=== PATIENT | male | born 1955 | race Caucasian/White ===

== ENCOUNTER → 2016-06-02 | Outpatient (CLI) | payer OTHER ==
--- NOTE | 2016-06-02 16:00 | US ---
Ultrasound Venous Doppler Study of the Left Lower Extremity History: Left calf pain and swelling in a 60-year-old male; evaluate for deep vein thrombosis. Technique: High frequency transducer was used for imaging and Doppler study of the veins of the left lower extremity. Pulsed Doppler and color Doppler were utilized, along with various maneuvers to ass ess flow in the veins. Findings: The deep veins of the left lower extremity are normally compressible between the groin and the upper calf and have normal Doppler waveforms within them. No venous thrombosis is identified. Impression: No evidence of deep vein thrombosis in the left lower extremity. A preliminary report was called to the patient's healthcare provider, Dr. Khan.
== END ==
LOC: FIMAGING 15:13
PROVIDERS: ATTEND Family Medicine
DX: R22.42 Localized swelling, mass and lump, left lower limb (principal)

== ENCOUNTER 2017-02-04 17:56 | Emergency (ER) | payer OTHER ==
[2017-02-04 18:13] VITALS: PULSE 63; TEMP 97.7
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
[2017-02-04] MEDS ORDERED: LIDOCAINE 5% 1 EA PATCH TD ONE (18:38)
[2017-02-04] MEDS ORDERED: DIAZEPAM 10 MG/2 ML SYR IVP ONE (18:38)
[2017-02-04] MEDS ORDERED: KETOROLAC 15 MG/1 ML SDV IVP ONE (18:38)
[2017-02-04] MEDS ORDERED: DIAZEPAM 5 MG TAB PO ONE (20:48)
[2017-02-04] MEDS ORDERED: DIAZEPAM 5 MG PREPACK#4 BTL TAKEHOME ONE (20:53)
[2017-02-04] MEDS ORDERED: PATCH REMOVAL 1 EA PATCH TD SCH (21:00)
[2017-02-04 21:03] VITALS: BP 151/89; RESP 15; O2SAT 96
== END 2017-02-04 21:03 | disposition home or self-care (01) ==
DX: S39.012A Strain of muscle, fascia and tendon of lower back, initial encounter (principal); Z95.0 Presence of cardiac pacemaker; V18.0XXA Pedal cycle driver injured in noncollision transport accident in nontraffic accident, initial encounter; Y92.410 Unspecified street and highway as the place of occurrence of the external cause; Y99.8 Other external cause status; Y93.55 Activity, bike riding
CPT/HCPCS: 96374; J1885

== ENCOUNTER → 2018-05-05 | Outpatient (CLI) | payer OTHER | LOC: GIMAGING 16:17 | PROVIDERS: ATTEND Family Medicine | DX: M16.11 Unilateral primary osteoarthritis, right hip (principal); M16.12 Unilateral primary osteoarthritis, left hip | CPT/HCPCS: 73521-PO ==

== ENCOUNTER 2018-07-22 05:51 | Inpatient (IN) | payer OTHER ==
[2018-07-22] MEDS ORDERED: ROPIVACAINE 0.2% 80 MG, EPINEPHrine 0.2 MG, KETOROLAC TROMETHAMINE 30 MG in SYRINGE 0 ML IU ONE (06:00)
[2018-07-22] MEDS ORDERED: TRANEXAMIC ACID 3,000 MG in NS (SYRINGE) 50 ML IRR ONE (06:00)
--- NOTE | 2018-07-22 06:13 | PDHPUP ---
History & Physical Update H&P update statement: This history and physical update is based on an assessment of the patient which was completed after admission or registration (within 24 hours), but prior to the surgery/procedure. H&P update: H&P reviewed & patient examined
[2018-07-22] MEDS ORDERED: FAMOTIDINE 20 MG TAB PO ONE (06:44)
[2018-07-22] MEDS ORDERED: ceFAZolin 2 GM/DEXTROSE 100 ML IV ONE (06:44)
[2018-07-22] MEDS ORDERED: ACETAMINOPHEN 325 MG TAB PO ONE (06:44)
[2018-07-22] MEDS ORDERED: DEXAMETHASONE 4 MG/ML VIAL IVP ONE (06:44)
[2018-07-22] MEDS ORDERED: TRANEXAMIC ACID 3,000 MG/50 ML BAG IRR ONE (06:45)
[2018-07-22] MEDS ORDERED: LR 1,000 ML IV ONE (06:45)
[2018-07-22] MEDS ORDERED: MIDAZOLAM 2 MG/2 ML VIAL IVP ONE (07:39)
--- NOTE | 2018-07-22 07:39 | PDANEPAE ---
ANE History of Present Illness R hip DJD, here for RTHA ANE Past Medical History - Cardiovascular History Hx Hypertension: Yes Hx Arrhythmias: Yes Hx Chest Pain: No Hx Coronary Artery / Peripheral Vascular Disease: No Hx CHF / Valvular Disease: Yes Hx Palpitations: No Cardiovascular History Comment: SSS,PAF. MITRAL VALVE REGURGITATION. PPM DEPENDANT - Pulmonary History Hx COPD: No Hx Asthma/Reactive Airway Disease: No Hx Recent Upper Respiratory Infection: No Hx Oxygen in Use at Home: No Hx Sleep Apnea: Yes Sleep Apnea Screening Result - Last Documented: Positive Pulmonary History Comment: VU uses CPAP - Neurologic History Hx Cerebrovascular Accident: No Hx Seizures: No Hx Dementia: No - Endocrine History Hx Diabetes: No - Renal History Hx Renal Disorders: No - Liver History Hx Hepatic Disorders: No - Neurological & Psychiatric Hx Hx Neurological and Psychiatric Disorders: No - Cancer History Hx Cancer: No - Congenital Disorder History Hx Congenital Disorders: Yes Congenital History Comment: DIABETES. STROKES - GI History Hx Gastrointestinal Disorders: No - Other Health History Other Health History: NONE - Chronic Pain History Chronic Pain: No - Surgical History Prior Surgeries: no surgery since 7th grade ANE Review of Systems Review of Systems: - Exercise capacity METS (RN): 4 METS - Pacemaker Pacemaker Type: Permanent Pacer/Defib Pacemaker Mesmerist: [place] [place] Pacemaker Model: accent DR RF 2210 Pacemaker Mode: DDDR Date Pacemaker Last Checked: 07/20/18 ANE Patient History - Allergies Allergies/Adverse Reactions: CATS Allergy (Severe, Uncoded 07/15/18 16:49) Congestion enviornmental Allergy (Uncoded 07/22/18 07:03) Congestion - Home Medications Home Medications: Acetaminophen [Tylenol 325mg (*)] 325 mg PO Q6 PRN 07/12/18 [Last Taken 07/20/18 ] Aspirin [Aspirin 81mg (*)] 81 mg PO DAILY 07/12/18 [Last Taken 1 Week Ago ~07/15] Diltiazem HCl [Cartia XT 240mg] 240 mg PO DAILY 07/12/18 [Last Taken 07/22/18 05 :00] Lisinopril [Zestril 10 mg (*)] 10 mg PO DAILY 07/22/18 [Last Taken 07/21/18] - NPO status NPO Since - Liquids (Date): 07/22/18 NPO Since - Liquids (Time): 05:00 NPO Since - Solids (Date): 07/21/18 NPO Since - Solids (Time): 19:00 - Smoking Hx Smoking Status: Never smoked - Family Anes Hx Family Hx Anesthesia Complications: none ANE Labs/Vital Signs - Vital Signs Blood Pressure: 132/87 Heart Rate: 61 Respiratory Rate: 18 O2 Sat (%): 94 Height: 172.72 cm Weight: 99.79 kg ANE Physical Exam - Airway Neck exam: FROM Mallampati Score: Class 2 Mouth exam: normal dental/mouth exam - Pulmonary Pulmonary: no respiratory distress, no rales or rhonchi - Cardiovascular Cardiovascular: regular rate and rhythym, no murmur, rub, or gallop - ASA Status ASA Status: III ANE Anesthesia Plan Anesthesia Plan: GA with mask, spinal Total IV Anesthesia: Yes
[2018-07-22] MEDS ORDERED: BUPIVACAINE 0.5% 30 ML SDV ONE (07:45)
[2018-07-22] MEDS ORDERED: PHENYLEPHRINE 10 MG/ML SDV ONE (07:46)
[2018-07-22] MEDS ORDERED: LIDOCAINE 2% 100 MG/5 ML SYR ONE (07:46)
[2018-07-22] MEDS ORDERED: ONDANSETRON 4 MG/2 ML VIAL ONE (07:46)
[2018-07-22] MEDS ORDERED: PROPOFOL/EMULSION 500 MG/50 ML BOTTLE IV ONE ×3 (07:46→09:46)
[2018-07-22] MEDS ORDERED: fentaNYL 100 MCG/2 ML INJ ONE ×2 (07:47→11:00)
[2018-07-22] MEDS ORDERED: ACETAMINOPHEN 500 MG TAB PO PRN (09:54)
[2018-07-22] MEDS ORDERED: MEPERIDINE 25 MG/0.5 ML AMP IVP PRN (09:54)
[2018-07-22] MEDS ORDERED: HYDROmorphONE/DILAUDID 2 MG/ML INJ IVP PRN (09:54)
[2018-07-22] MEDS ORDERED: DIAZEPAM 5 MG/ML 1 ML SYR IVP PRN (09:54)
[2018-07-22] MEDS ORDERED: LR 500 ML IV PRN (09:54)
[2018-07-22] MEDS ORDERED: ONDANSETRON 4 MG/2 ML VIAL IVP PRN ×2 (09:54→10:01)
[2018-07-22] MEDS ORDERED: PHENYLEPHRINE HCL 100 MCG/ML SYR IVP PRN (09:54)
[2018-07-22] MEDS ORDERED: oxyCODONE IR 5 MG TAB PO PRN (09:54)
[2018-07-22] MEDS ORDERED: NALOXONE HCL 0.4 MG/ML INJ IVP PRN (09:54)
[2018-07-22] MEDS ORDERED: POLYETHYLENE GLYCOL 3350 17 GM PKT PO PRN (10:01)
[2018-07-22] MEDS ORDERED: ONDANSETRON DISINTEGRATING 4 MG TAB PO PRN (10:01)
[2018-07-22] MEDS ORDERED: BISACODYL 10 MG SUPP PR PRN (10:01)
[2018-07-22] MEDS ORDERED: diphenhydrAMINE 25 MG CAP PO PRN (10:01)
[2018-07-22] MEDS ORDERED: LACTULOSE 20 GM/30 ML UDCUP PO PRN (10:01)
[2018-07-22] MEDS ORDERED: PROMETHAZINE HCL 25 MG/ML INJ IVP PRN (10:01)
[2018-07-22] MEDS ORDERED: METOCLOPRAMIDE 10 MG/2 ML VIAL IVP PRN (10:01)
[2018-07-22] MEDS ORDERED: MAGNESIUM HYDROXIDE 30 ML UDCUP PO PRN (10:01)
[2018-07-22] MEDS ORDERED: DIPHENOXYLATE/ATROPINE LOMOTIL 1 TAB PO PRN (10:01)
[2018-07-22] MEDS ORDERED: TEMAZEPAM 15 MG CAP PO PRN (10:01)
[2018-07-22] MEDS ORDERED: PROMETHAZINE HCL 25 MG SUPPR PR PRN (10:01)
--- NOTE | 2018-07-22 10:01 | POSTOPPROG ---
Post Op Note Date of Operation: 07/22/18 Surgeon: Olman Gómez Personal Clothing Laundry Aide: Sienna CAMPA Anesthesiologist: Dr. Ce Flowers Anesthesia: Spinal Pre-op Diagnosis: right hip OA Post-op Diagnosis: same Indication: right hip pain Procedure: RTHA Findings: severe OA of right hip Inf/Abcess present in the surg proc area at time of surgery?: No EBL: 50-100
--- NOTE | 2018-07-22 10:12 | POSTANESTH ---
Post Anesthetic Evaluation Cardiovascular Status: Normal, Stable Respiratory Status: Normal, Stable Level of Consciousness/Mental Status: Can Participate in Eval, Mildly Sleepy, Arousable Pain Control: Adequate, Prn Tx Ordered Nausea/Vomiting Control: Adequate, Prn Tx Ordered Complications Possibly Related to Anesthesia: None Noted (moving both feet on arrival to PACU)
--- NOTE | 2018-07-22 10:22 | PDMN ---
Medical Necessity Medical necessity: [facility] [place] S560 hip arthroplasty INPT only OP: R KEATON AUTH # [id number] APPROVED FOR CPT CODE 11718 TO BE DONE INPT . 2 DAYS LOS.
[2018-07-22] MEDS ORDERED: LR 1,000 ML IV SCH (10:30)
[2018-07-22] MEDS: fentaNYL 100 MCG/2 ML INJ IVP PRN ×2 (11:01→11:26)
[2018-07-22] MEDS ORDERED: oxyCODONE IR 5 MG TAB ONE (11:06)
[2018-07-22] MEDS: oxyCODONE IR 5 MG TAB PO PRN ×2 (12:03→15:15)
[2018-07-22] MEDS ORDERED: ceFAZolin 2 GM/DEXTROSE 100 ML IV SCH (14:00)
--- NOTE | 2018-07-22 14:38 | GOP ---
[f rep st] OPERATIVE REPORT DATE OF OPERATION: 07/22/2018 SURGEON: Rima Gómez MD COORDINATOR VOLUNTEER SERVICES: Roya Gregory P.A.-c ANESTHESIA: Spinal. PREOPERATIVE DIAGNOSIS: Right hip osteoarthritis. POSTOPERATIVE DIAGNOSIS: Right hip osteoarthritis. PROCEDURE PERFORMED: Total hip arthroplasty with x-ray. FINDINGS: ESTIMATED BLOOD LOSS: 200 cc. INDICATIONS: The patient has progressively worsening arthritis of the hip which has failed medical m anagement. The patient understands the treatment options including continued non-operative care and has selected surgical intervention. The patient has decided to undergo total hip arthroplasty via th e direct anterior approach, understanding the risks of the procedure including, but not limited to, n eurovascular injury, infection, persistent pain, component wear and loosening, deep venous thrombosis , pulmonary embolism, limb length inequality, hip instability (including dislocation), and intra-oper ative fractures. DESCRIPTION OF PROCEDURE: After proper identification of the patient including verification and rosalia ing the surgical site, the patient was brought to the operating room and placed in the supine positio n. All bony prominences were well padded. Anesthesia was induced without complication and intraveno us prophylactic antibiotics were administered prior to skin incision. The operative leg was placed in the Trumpf Arch table extension and the well leg in a Yellofin leg ho lder. The patient was prepped and draped in the usual sterile fashion. The C-arm was draped for int ra-operative fluoroscopy to check acetabular position, femoral component position including leg lengt h and femoral offset. Attention was then drawn to surgical exposure of the hip. An incision was made with a #10 Bard Austin r blade starting 3 cm lateral and 3 cm distal to the anterior superior iliac spine measuring 8-10 cm and coursing distally toward the greater trochanter. The skin and subcutaneous tissues were divided sharply down to the fascia juliana. The fascia juliana was incised in line with the skin incision exposing the underlying tensor fascia juliana muscle. The muscle was bluntly elevated from the fascia and the f irst extracapsular Cobra retractor was placed laterally at the junction of the superior femoral neck and greater trochanter. The lateral femoral circumflex vessels were identified, cauterized, and divi ded with the Aquamantys bipolar cautery. The deep investing fascia of the TFL was divided to allow p bridger mobilization of the muscle preventing damage during the retraction. The reflected head of the rectus femoris muscle was elevated off the anterior hip capsule and a medial Cobra retractor was plac ed just proximal to the lesser trochanter. The anterior capsulotomy was made sharply from the superolateral acetabulum to the saddle junction of the superior femoral neck and greater trochanter, then coursing inferomedial towards the lesser troc hanter. The retractors were then placed in the intracapsular position for femoral neck osteotomy. C orresponding to pre-operative templating, the osteotomy was made with the oscillating saw carefully p rotecting the greater trochanter and soft tissues. The femoral head was removed from the acetabulum with a corkscrew and confirmed to be severely arthritic with exposed bone, deformity and osteophytes. Similar findings were confirmed in the acetabulum. The Arch table extension was then placed in 40 degrees external rotation. Attention was then drawn to the acetabular preparation. After placement of the anterior and posterio r Cobra retractors outside the labrum and intracapsular, the circumferential labrum was removed sharp ly. The foveal contents were then removed and hemostasis obtained with cautery. The first reamer selected was sized using the removed femoral head. Reaming began with medialization and then commenced in 2 mm increments at 45 degrees of abduction and 15 degrees of anteversion using fluoroscopic navigation. Reaming ceased 1 mm less than the definitive acetabular component and moe esponded to the pre-operative templating. The final acetabular component was inserted using fluorosc opy to achieve proper orientation yielding excellent purchase and stability in the acetabulum. The f inal acetabular liner was then placed and its seating confirmed. Attention was then turned to the femur. The Arch table extension was placed in extension and adducti on, delivering the osteotomized femoral neck into the wound. A 2-pronged femoral elevator was placed at the calcar and another at the tip of the greater trochanter. The posterolateral capsule was rele ased with cautery allowing mobilization of the femur lateral and anterior for preparation. The exter nal rotators were visualized and preserved. A curette and rongeur were used to open the starting poi nt for broaching. Serial broaching started with the #0 broach and ended with the broach that exhibit ed excellent fit in the proximal femur. A change in pitch during mallet strikes was accompanied by t he inability to advance the broach any further. The trial reduction was performed and fluoroscopic n avigation was utilized to check limb length. Adjustments were made to equalize limb length according ly. After the final trials were accepted they were removed and the wound was copiously lavaged. The femo ral component was seated to the same depth as the final broach and the femoral head was impacted onto the clean trunnion. The hip was then reduced for the final time and once more fluoroscopy was used to check that limb length equality was achieved. The wound was irrigated and closed in layers, the fascia juliana with 2-0 Quill, the subcutaneous tissue with 2-0 Quill, and the skin with Dermabond. Sterile dressings were applied. Final sharps and spon ge counts were accurate. The patient was then transferred to a hospital bed and brought to the [facility] room in stable condition. IMPLANTS: Accolade II size 5 at 127. Acetabular component Trident 2, 56 mm. Liner is a Trident X3, 36 mm head with a Biolox delta 36 mm +0. /[id number]/MODL
[2018-07-22] MEDS: CYCLOBENZAPRINE 10 MG TAB PO PRN (15:18)
[2018-07-22] MEDS: ACETAMINOPHEN 325 MG TAB PO SCH ×2 (16:56→21:25)
[2018-07-22] MEDS: ceFAZolin 2 GM/DEXTROSE 100 ML IV SCH ×2 (16:57→23:19)
[2018-07-22] MEDS: ASPIRIN 81 MG CHEWABLE TAB PO SCH (20:34)
[2018-07-22] MEDS: SENNOSIDES/DOCUSATE SODIUM TAB PO SCH (20:34)
[2018-07-22] MEDS: FAMOTIDINE 20 MG TAB PO SCH (21:25)
[2018-07-23] MEDS: ACETAMINOPHEN 325 MG TAB PO SCH ×2 (04:00→10:45)
[2018-07-23] MEDS: oxyCODONE IR 5 MG TAB PO PRN ×2 (07:03→09:11)
[2018-07-23 08:43] VITALS: BP 110/70
[2018-07-23] MEDS: ASPIRIN 81 MG CHEWABLE TAB PO SCH (08:56)
[2018-07-23] MEDS: SENNOSIDES/DOCUSATE SODIUM TAB PO SCH (08:57)
[2018-07-23] MEDS: FAMOTIDINE 20 MG TAB PO SCH (08:57)
[2018-07-23] MEDS ORDERED: DILTIAZEM XR 240 MG CAP PO SCH (09:00)
[2018-07-23] MEDS ORDERED: LISINOPRIL 10 MG TAB PO SCH (09:00)
--- NOTE | 2018-07-23 09:20 | SOAPPROG ---
SOAP Progress Note Assessment/Plan: Assessment: Patient is doing well POD 1 s/p R KEATON Pain management: pain is well controlled on oral pain meds and flexeril. Flexeril alleviated pain that nurse called about yesterday afternoon. Oxycodone and Morphine had not alleviated, but flexeril did. VTE ppx: recommend 81 mg aspirin morning and evening for 4 weeks, cont ASHOK and SCDs still waiting on H/H orders. Not sure why that wasn't obtained this morning. Trying to communicate with nurses. Recommend H/H before discharge. D/c planning:patient has done much better than anticipated. Patient is stable, BP stable, pain well controlled and patient is eager for discharge to home. May d/c to home today pending release from PT and once we have received H/H. Plan: 07/23/18 09:18 07/23/18 09:20 Subjective: patient is doing well today, denies SOB, chest pain and n/v Objective: Vital Signs Temp Pulse Resp BP Pulse Ox 36.9 C 79 14 110/70 94 07/23/18 08:00 07/23/18 08:00 07/23/18 08:00 07/23/18 08:00 07/23/18 08:00 07/22/18 07/23/18 07/24/18 05:59 05:59 05:59 Intake Total 3980 234 Output Total 1575 Balance 2405 234 RLE: incision dressing is clean and dry, NVI, +pf/df ICD10 Worksheet Patient Problems: Problems Problem Status Onset Primary localized osteoarthritis of right hip Acute Afib - Atrial fibrillation Active
--- NOTE | 2018-07-23 09:34 | ASMTLACE ---
LACE Length of stay for Answers: 1 day current admission Acuity / Level of Answers: Yes Care: Did the patient have an inpatient admission? Comorbidities - select Answers: Cerebrovascular disease all that apply (CVA, TIA, aneurysms, vasc ular dementia) Congestive heart failure Diabetes (uncontrolled or controlled) Other Notes: HTN # of Emergency department Answers: 0 visits in the last 6 months Score: 9 Date Signed: 07/23/2018 09:33 AM Electronically Signed By:Alejandra Brady RN
[2018-07-23] MEDS ORDERED: PNEUMOCOCCAL 0.5ML VACCINE VIAL (PNEUMOVAX 23) IM ONE (10:37)
[2018-07-23] MEDS: CYCLOBENZAPRINE 10 MG TAB PO PRN (11:21)
--- NOTE | 2018-07-23 15:50 | GDS ---
[f rep st] DISCHARGE SUMMARY ADMISSION DIAGNOSIS: Right hip osteoarthritis. DISCHARGE DIAGNOSIS: Right hip osteoarthritis. PROCEDURE: Right total hip arthroplasty. VTE PROPHYLAXIS: Recommend aspirin 81 mg twice daily for 4 weeks. BRIEF DESCRIPTION OF HOSPITAL STAY: Patient was admitted for an elective joint arthroplasty. The pa raina tolerated the procedure well and has passed physical therapy. The patient was given appropriat e antibiotic prophylaxis and venous thromboembolism prophylaxis. The patient's pain was well control led on oral pain medication, patient was holding down food, and had urinated. Decision was made to d ischarge the patient. The patient was given post-operative prescriptions pre-operatively. PLAN: Scheduled with Dr. Gómez's office in 3 weeks. /[id number]/MODL
== END 2018-07-23 11:34 | disposition home or self-care (01) | DRG 470 ==
LOC: F3N 05:51
PROVIDERS: ADMIT Orthopaedic Surgery; ATTEND Orthopaedic Surgery
PROC: 0SR904A Replacement of Right Hip Joint with Ceramic on Polyethylene Synthetic Substitute, Uncemented, Open Approach (ICD-10-PCS; principal; 2018-07-22 08:00)
DX: M16.11 Unilateral primary osteoarthritis, right hip (principal); R33.9 Retention of urine, unspecified; I10 Essential (primary) hypertension; I48.0 Paroxysmal atrial fibrillation; Z95.0 Presence of cardiac pacemaker; I34.0 Nonrheumatic mitral (valve) insufficiency; G47.33 Obstructive sleep apnea (adult) (pediatric); Z23 Encounter for immunization
CPT/HCPCS: 97110-GP; 97116-GP; 97161-GP; G0009; J0171; J0690; J1100; J1885; J2001; J2250; J2270; J2370; J2405; J2704; J2795; J3010

== ENCOUNTER 2018-09-14 12:56 | Day surgery (SDC) | payer OTHER ==
--- NOTE | 2018-09-14 06:08 | PDHPUP ---
History & Physical Update H&P update statement: This history and physical update is based on an assessment of the patient which was completed after admission or registration (within 24 hours), but prior to the surgery/procedure. H&P update: H&P reviewed & patient examined, no change in patient's condition since H&P completed
[2018-09-14] MEDS ORDERED: ROPIVACAINE 0.2% 80 MG, EPINEPHrine 0.2 MG, KETOROLAC TROMETHAMINE 30 MG in SYRINGE 0 ML IU ONE (14:02)
[2018-09-14] MEDS ORDERED: TRANEXAMIC ACID 3,000 MG in NS (SYRINGE) 50 ML IRR ONE (14:02)
[2018-09-14] MEDS ORDERED: FAMOTIDINE 20 MG TAB PO ONE (14:02)
[2018-09-14] MEDS ORDERED: ceFAZolin 2 GM/DEXTROSE 100 ML IV ONE (14:02)
[2018-09-14] MEDS ORDERED: ACETAMINOPHEN 325 MG TAB PO ONE (14:02)
[2018-09-14] MEDS ORDERED: DEXAMETHASONE 4 MG/ML VIAL IVP ONE (14:02)
[2018-09-14] MEDS ORDERED: LR 1,000 ML IV ONE (14:04)
[2018-09-14] MEDS ORDERED: LIDOCAINE 1% 2 ML INJ ID PRN (14:04)
--- NOTE | 2018-09-14 14:19 | PDANEPAE ---
ANE Past Medical History - Cardiovascular History Hx Hypertension: Yes Hx Arrhythmias: Yes Hx Chest Pain: No Hx Coronary Artery / Peripheral Vascular Disease: No Hx CHF / Valvular Disease: Yes Hx Palpitations: No Cardiovascular History Comment: SSS,PAF. MITRAL VALVE REGURGITATION. PPM DEPENDANT - Pulmonary History Hx COPD: No Hx Asthma/Reactive Airway Disease: No Hx Recent Upper Respiratory Infection: No Hx Oxygen in Use at Home: No Hx Sleep Apnea: Yes Sleep Apnea Screening Result - Last Documented: Positive Pulmonary History Comment: VU uses CPAP - Neurologic History Hx Cerebrovascular Accident: No Hx Seizures: No Hx Dementia: No - Endocrine History Hx Diabetes: No Hypothyroid: No Hyperthyroid: No Obesity: moderate - Renal History Hx Renal Disorders: No - Liver History Hx Hepatic Disorders: No - Neurological & Psychiatric Hx Hx Neurological and Psychiatric Disorders: No - Cancer History Hx Cancer: No - Congenital Disorder History Hx Congenital Disorders: No Congenital History Comment: DIABETES. STROKES - GI History GERD: no Hx Gastrointestinal Disorders: No - Other Health History Other Health History: wears glasses - Chronic Pain History Chronic Pain: No - Surgical History Prior Surgeries: 08/13/18 right hip repair from fall in [place]. 07/22/18 right KEATON with [place]. correction of undescended testicle, appendectomy ANE Review of Systems Review of Systems: - Exercise capacity METS (RN): 4 METS - Pacemaker Pacemaker Type: Permanent Pacer/Defib Pacemaker Commercial Administrator: [employer] [place] Pacemaker Model: 2210 Pacemaker Mode: DDDR Pacemaker Set Rate: 60 Date Pacemaker Last Checked: 07/20/18 ANE Patient History - Allergies Allergies/Adverse Reactions: CATS Allergy (Uncoded 09/13/18 17:58) Congestion enviornmental Allergy (Uncoded 09/13/18 17:58) Congestion - Home Medications Home Medications: Diltiazem HCl [Cartia XT 240mg] 07/12/18 [Last Taken 07/22/18 05:00] Acetaminophen [Tylenol 325mg (*)] Q6H 09/13/18 [Last Taken Unknown] Aspirin [Aspirin 81mg (*)] BID 09/13/18 [Last Taken 09/13/18] - Anes Hx Anes Hx: no prior problems - Smoking Hx Smoking Status: Never smoked - Alcohol Use Alcohol Use: Other (1 drink/day) - Family Anes Hx Family Anes Hx: none Family Hx Anesthesia Complications: none ANE Labs/Vital Signs - Vital Signs Height: 172.72 cm Weight: 99.79 kg ANE Physical Exam - Airway Neck exam: FROM Mallampati Score: Class 2 - Pulmonary Pulmonary: clear to auscultation - Cardiovascular Cardiovascular: regular rate and rhythym - ASA Status ASA Status: III ANE Anesthesia Plan Anesthesia Plan: general endotracheal anesthesia
[2018-09-14] MEDS ORDERED: BUPIVACAINE/EPI 0.5% 30 ML SDV ONE (14:37)
[2018-09-14] MEDS ORDERED: MIDAZOLAM 2 MG/2 ML VIAL ONE (15:22)
[2018-09-14] MEDS ORDERED: DEXAMETHASONE 4 MG/ML VIAL ONE (15:28)
[2018-09-14] MEDS ORDERED: ROCURONIUM 50 MG/5 ML VIAL ONE (15:28)
[2018-09-14] MEDS ORDERED: fentaNYL 250 MCG/5 ML INJ ONE (15:28)
[2018-09-14] MEDS ORDERED: PROPOFOL 200 MG/20 ML VIAL ONE (15:28)
[2018-09-14] MEDS ORDERED: MIDAZOLAM 2 MG/2 ML VIAL IVP ONE (15:30)
[2018-09-14] MEDS ORDERED: ONDANSETRON 4 MG/2 ML VIAL ONE (16:07)
[2018-09-14] MEDS ORDERED: SUGAMMADEX SODIUM 200 MG/2 ML VIAL IVP ONE (16:09)
[2018-09-14] MEDS ORDERED: HYDROmorphONE/DILAUDID 1 MG/ML INJ IVP PRN (16:25)
[2018-09-14] MEDS ORDERED: NALOXONE HCL 0.4 MG/ML INJ IVP PRN (16:25)
[2018-09-14] MEDS ORDERED: fentaNYL 100 MCG/2 ML INJ IVP PRN (16:25)
--- NOTE | 2018-09-14 16:26 | POSTANESTH ---
Post Anesthetic Evaluation Cardiovascular Status: Similar to Pre-Op Cond Respiratory Status: Similar to Pre-op Cond. Level of Consciousness/Mental Status: Can Participate in Eval Pain Control: Adequate, Prn Tx Ordered Nausea/Vomiting Control: Adequate, Prn Tx Ordered Complications Possibly Related to Anesthesia: None Noted
--- NOTE | 2018-09-14 16:33 | POSTOPPROG ---
Post Op Note Date of Operation: 09/14/18 Surgeon: Olman Gómez Non Profit Financial Controller: Sienna CAMPA Anesthesiologist: Dr. Michael Salcedo Anesthesia: GET(General Endotracheal) Pre-op Diagnosis: delayed healing of surgical incision Post-op Diagnosis: same Indication: delayed healing of surgical incision Procedure: superfical irrigation and debidement of surgical incision of right hip Findings: delayed healing of surgical incision Inf/Abcess present in the surg proc area at time of surgery?: No EBL: Minimal
[2018-09-14 17:33] VITALS: BP 152/97
--- NOTE | 2018-09-15 09:41 | GOP ---
[f rep st] OPERATIVE REPORT DATE OF OPERATION: 09/14/2018 SURGEON: Rima Gómez MD COMMUNICATIONS ADVISOR: Roya Gregory PA-C. ANESTHESIA: General. PREOPERATIVE DIAGNOSIS: Right hip/thigh nonhealing incision. POSTOPERATIVE DIAGNOSIS: Right hip/thigh nonhealing incision. PROCEDURE PERFORMED: 1. Right hip/thigh irrigation and debridement. 2. Delayed primary closure. FINDINGS: ESTIMATED BLOOD LOSS: 20 cc. INDICATIONS: Patient is a 63-year-old gentleman. Underwent a right total hip arthroplasty ankita jain 2 months ago. Approximately 1 month ago, patient [place]. Jennifer velázquezd a periprosthetic fracture which was fixed in [place]. Patient had a large incision and had some persistent drainage from the incision. Discussion of risks and benefits were had with patient regarding opening the incision and then closing it, exploring for any sort of deep infection. Patien t's labs were all normal with normal white blood cell count, normal CRP, normal ESR. Decision was ma de to proceed with surgery and informed consent was obtained. DESCRIPTION OF PROCEDURE: Patient was identified in the preoperative holding area. His right lower extremity was marked. He was then brought back to the operating room. After induction of anesthesia , he was prepped and draped in the usual sterile fashion. A bump was placed under his right upper th igh. We took a time-out to identify patient, laterality, procedure, allergies, antibiotic status. W e then opened up his nonhealing area of the incision, explored the incision area. There was no super ficial fluid collection. There was no deep fluid collection. The skin edges were removed thinly to create bleeding skin. The incision was copiously irrigated and closed in layers and placed into a st erile dressing. Patient was awakened and brought to PACU in good condition with a well-perfused limb . The plan is to discharge patient home, and he will follow up in the orthopedic clinic. /[id number]/MODL
== END 2018-09-14 17:55 | disposition home or self-care (01) ==
LOC: FSGY 12:56
PROVIDERS: ATTEND Orthopaedic Surgery
PROC: 0J9L0ZZ Drainage of Right Upper Leg Subcutaneous Tissue and Fascia, Open Approach (ICD-10-PCS; principal; 2018-09-14 14:45)
DX: T81.32XA Disruption of internal operation (surgical) wound, not elsewhere classified, initial encounter (principal); M97 Periprosthetic fracture around internal prosthetic joint; Z96.641 Presence of right artificial hip joint; I34.0 Nonrheumatic mitral (valve) insufficiency; G47.33 Obstructive sleep apnea (adult) (pediatric); Z95.0 Presence of cardiac pacemaker
CPT/HCPCS: J0171; J0690; J1100; J1885; J2250; J2405; J2704; J2795; J3010